=== PATIENT | male | born 1995 | race African-American/Black ===

== ENCOUNTER 2016-09-29 05:32 | Emergency (ER) | payer BC, OTHER ==
[~2016-09-29] VITALS: Ht 190.5 cm; Wt 81.8 kg
--- NOTE | 2016-09-29 05:44 | ERA ---
ER Documentation Chief Complaint Date/Time DATE: 09/29/16 TIME: 05:42 Chief Complaint HPI 21-year-old male brought in by EMS secondary to agitated and psychotic behavior per family. Patient is very tangential does not respond to history taking questions. ROS All systems reviewed and are negative except as per history of present illness. Physical Exam Physical Exam Const: [] Head: Atraumatic Eyes: Normal Conjunctiva ENT: Normal External Ears, Nose and Mouth. Neck: Full range of motion..~ No meningismus. Resp: Clear to auscultation bilaterally Cardio: Regular rate and rhythm, no murmurs Abd: Soft, non tender, non distended. Normal bowel sounds Skin: No petechiae or rashes Back: No midline or flank tenderness Ext: No cyanosis, or edema Neur: Awake and alert Psych: Normal Mood and Affect Procedures/MDM Patient's behavioral symptoms have stabilized while in the department. Patient is medically cleared and appropriate for psychiatric evaluation and work up. No e/o neurologic, toxic, infectious, or metabolic cause. P patient placed in 4. restraints secondary to flight risk Departure Diagnosis: Primary Impression: Agitation Additional Impression: Acute psychosis Condition: Stable DEMARCUS VALE Sep 29, 2016 05:44
[2016-09-29 05:53] VITALS: Ht 190.5 cm; Wt 81.8 kg
[2016-09-29] MEDS ORDERED: OLANZAPINE 10 MG VIAL IM ONE ×2 (06:30→16:00)
[2016-09-29 06:43] LABS: ADD SCAN DIFF NO
[2016-09-29 06:44] LABS: BASOPHILS % 0.3 % (0.0-2.0); HEMATOCRIT 42.8 % (42.0-52.0); HEMOGLOBIN 15.3 g/dl (14.0-18.0); LYMPHOCYTES # 0.7 10^3/ul (0.8-2.9); LYMPHOCYTES % 9.2 % (18.0-55.0); MEAN CORPUSCULAR HGB CONC 35.7 g/dl (32.0-37.0); MEAN CORPUSCULAR VOLUME 92.4 fl (72.0-104.0); MEAN PLATELET VOLUME 12.1 fl (7.4-10.4); MONOCYTE # 0.5 10^3/ul (0.3-0.9); MONOCYTES % 6.1 % (0.0-13.0); NEUTROPHIL # 6.2 10^3/ul (1.6-7.5); PLATELET COUNT 195 10^3/UL (140-415); RED BLOOD COUNT 4.63 10^6/ul (4.70-6.10); WHITE BLOOD COUNT 7.4 10^3/ul (4.8-10.8)
[2016-09-29 07:27] LABS: ALANINE AMINOTRANSFERASE 22 IU/L (13-69); ALBUMIN 5.7 g/dl (3.3-4.9); ALBUMIN/GLOBULIN RATIO 1.54; ALKALINE PHOSPHATASE 112 IU/L (42-121); ANION GAP 23 (8-16); ASPARTATE AMINO TRANSFERASE 40 IU/L (15-46); BILIRUBIN,INDIRECT 1.2 mg/dl (0-1.1); BILIRUBIN,TOTAL 1.2 mg/dl (0.2-1.3); BLOOD UREA NITROGEN 24 mg/dl (7-20); CALCIUM 10.7 mg/dl (8.4-10.2); CARBON DIOXIDE 18 mmol/L (21-31); CHLORIDE 104 mmol/L (97-110); CREATININE 1.69 mg/dl (0.61-1.24); GLUCOSE 127 mg/dl (70-220); POTASSIUM 3.5 mmol/L (3.5-5.1); SODIUM 141 mmol/L (135-144); TOTAL PROTEIN 9.4 g/dl (6.1-8.1)
[2016-09-29 07:29] LABS: ACETAMINOPHEN < 10.0 ug/ml (10.0-30.0); ETHANOL < 10.0 mg/dl; SALICYLATE < 1.0 mg/dl (5.0-30.0)
[2016-09-29 08:43] LABS: ADD UMIC YES; UR ASCORBIC ACID NEGATIVE (NEGATIVE); UR BILIRUBIN (Dip) NEGATIVE (NEGATIVE); UR BLOOD (Dip) 1+ mg/dL (NEGATIVE); UR CLARITY SLIGHTLY CLOUDY (CLEAR); UR COLOR AMBER (YELLOW); UR GLUCOSE (Dip) NEGATIVE (NEGATIVE); UR KETONES (Dip) 1+ mg/dL (NEGATIVE); UR LEUKOCYTE ESTERASE (Dip) NEGATIVE Leu/ul (NEGATIVE); UR NITRITE (Dip) NEGATIVE (NEGATIVE); UR RBC 1 /HPF (0-5); UR SPECIFIC GRAVITY (Dip) 1.031 (1.003-1.030); UR TOTAL PROTEIN (Dip) 2+ mg/dl (NEGATIVE); UR UROBILINOGEN (Dip) 1+ mg/dL (NEGATIVE)
[2016-09-29 09:08] LABS: BARBITURATES Negative (NEGATIVE); BENZODIAZEPINES Negative (NEGATIVE); CANNABINOIDS Positive (NEGATIVE); COCAINE Negative (NEGATIVE); OPIATES Negative (NEGATIVE)
--- NOTE | 2016-09-29 19:14 | PSY ---
Date/Time of Note Date/Time of Note DATE: 09/29/16 TIME: 22:10 Psychiatric Subjective Eval Consent Pt consented to telemedicine: Yes Subjective Evaluation Patient location: emergency Chief Complaint: pt w/ aggressive behavior. paranoid thoughts. 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 He was bibems called by his roommates as the pt was agitated, out of control, paranoid, unable to function in the community. On exam, pt was in control but very disoragnized, illogical, delusional. He admitted to THC use. IS not taking psych meds at this time. Denies si/hi. Reports that his roommates our out to [facility] and that is why they called EMS. Past Psych Hx: reports a hospitalization 1 year ago, denies suicide attempts, reports not taking any psych meds PMHx: denies All: denies MSE: thin, appears stated, age, in unusual position on gurney, sitting on olong side of gurney, knees to chest, odd position, speaking in a tangential and disorganized way, about "communication" and other ideas which are irrelevant to the conversation; persecutory delusions about why his roommates called EMS, clearly responding to internal stimuli, possibly scared of them, distracted, denies si/hi Imp: 21 yo male with psychois, too gravely disabled to function in the community due to psychosis -would give one dose of risperidone 2mg po and ativan 2mg po now -for moderate agitation risperidone 2mg po and ativan 2mg po prn -for severe agitation haldol 5mg IM, ativan 2mg IM, cogentin 1mg IM -5150 psych admit Medical history Problems Medical Problems: (1) Acute psychosis Status: Acute (2) Agitation Status: Acute Allergies: Coded Allergies: Unknown: Unable to obtain (Unverified , 09/29/16) Social History Marital status: single Psychiatric Objective Eval Mental Status Examination: Laboratory Results Laboratory Tests Test 09/29/16 05:50 09/29/16 08:25 White Blood Count 7.410^3/ul Red Blood Count 4.6310^6/ul Hemoglobin 15.3g/dl Hematocrit 42.8% Mean Corpuscular Volume 92.4fl Mean Corpuscular Hemoglobin 33.0pg Mean Corpuscular Hemoglobin Concent 35.7g/dl Red Cell Distribution Width 13.0% Platelet Count 14940^3/UL Mean Platelet Volume 12.1fl Neutrophils % 84.0% Lymphocytes % 9.2% Monocytes % 6.1% Eosinophils % 0.0% Basophils % 0.3% Nucleated Red Blood Cells % 0.0/100WBC Neutrophils # 6.210^3/ul Lymphocytes # 0.710^3/ul Monocytes # 0.510^3/ul Eosinophils # 0.010^3/ul Basophils # 0.010^3/ul Nucleated Red Blood Cells # 0.010^3/ul Sodium Level 141mmol/L Potassium Level 3.5mmol/L Chloride Level 104mmol/L Carbon Dioxide Level 18mmol/L Anion Gap 23 Blood Urea Nitrogen 24mg/dl Creatinine 1.69mg/dl Glucose Level 127mg/dl Calcium Level 10.7mg/dl Total Bilirubin 1.2mg/dl Direct Bilirubin 0.00mg/dl Indirect Bilirubin 1.2mg/dl Aspartate Amino Transf (AST/SGOT) 40IU/L Alanine Aminotransferase (ALT/SGPT) 22IU/L Alkaline Phosphatase 112IU/L Total Protein 9.4g/dl Albumin 5.7g/dl Globulin 3.70g/dl Albumin/Globulin Ratio 1.54 Salicylates Level < 1.0mg/dl Acetaminophen Level < 10.0ug/ml Ethyl Alcohol Level < 10.0mg/dl Urine Color PRITI Urine Clarity SLIGHTLY CLOUDY Urine pH 5.0 Urine Specific [place] 1.031 Urine Ketones 1+mg/dL Urine Nitrite NEGATIVEmg/dL Urine Bilirubin NEGATIVEmg/dL Urine Urobilinogen 1+mg/dL Urine Leukocyte Esterase NEGATIVELeu/ul Urine Microscopic RBC 1/HPF Urine Microscopic WBC 2/HPF Urine Granular Casts FEW/HPF Urine Hemoglobin 1+mg/dL Urine Glucose NEGATIVEmg/dL Urine Total Protein 2+mg/dl Urine Opiates Screen Negative Urine Barbiturates Negative Urine Amphetamines Screen Negative Urine Benzodiazepines Screen Negative Urine Cocaine Screen Negative Urine Cannabinoids Positive HENRY PAIZ Sep 29, 2016 19:14
[2016-09-30 05:05] VITALS: TEMP 98.2
[2016-09-30 06:40] VITALS: BP 119/87; PULSE 120; RESP 24
[2016-09-30] MEDS ORDERED: LORAZEPAM 1 MG TAB PO ONE ×2 (07:00→08:00)
[2016-09-30] MEDS ORDERED: RISPERIDONE 2 MG TAB PO ONE (08:00)
== END 2016-09-30 08:11 ==
LOC: E/R 05:32
DX: R45.1 Restlessness and agitation (principal); F23 Brief psychotic disorder
CPT/HCPCS: 36415; 80053; 80306; 80307; 81001; 85025; 96372